=== PATIENT | male | born 1990 | race Caucasian/White ===

== ENCOUNTER 2022-08-08 13:28 | Outpatient (CLI) | payer BC, SELFPAY ==
--- NOTE | 2022-09-05 12:46 | WPDSLEEPSTUD ---
Sleep Study Date of Study: 08/08/22 Ordering Provider: Ken Cooney MD Interpreting Physician: Keli Hong MD Sleep Study Type: CPAP Titration Height: 1.8 m Weight: 102.058 kg Body Mass Index: 31.4 Neck Circumference (inches): 15 [place]: 5 Reason for Sleep Study Patient has been on CPAP 8cmH2O. Recently got a new CPAP machine and his partner noted snoring and gasping while wearing CPAP. CPAP download 07/04-08/02/22 shows excellent compliance, worn 100% of nights for avg overall AHI 6.2 and low air leak. Sleep History Chao Villegas is a 32-year-old man with history of obstructive sleep apnea who presented for a CPAP titration due to snoring, gasping, and AHI on CPAP 8cmH2O. He rarely awakens from sleep short of breath. He rarely awakens at night with heartburn, belching or cough. He frequently snores. He occasionally snores loudly enough that others complain. He frequently has trouble sleeping when he has a cold. He rarely suddenly wakes up gasping for breath during the night. He occasionally has breathing problems at night. He rarely sweats excessively at night. He rarely notices his heart pounding or beating irregularly during the night. He does not fall asleep during the day, involuntarily, or while driving. He never experiences loss of muscle tone with strong emotion. He never has trouble at work because of sleepiness. He never feels paralyzed on waking or falling asleep. He rarely experiences vivid dreams upon waking or falling asleep. He does not feel afraid of going to sleep. He rarely has nightmares. He frequently recalls his dreams. He rarely has thoughts racing through his mind. He does not feel sad or depressed. He does not feel anxiety or worry about things. He never has muscle tension. He occasionally notices parts of his body jerk. He occasionally kicks during the night. He rarely feels crawling or aching feelings in his legs and rarely feels leg pain at night. He does not grind his teeth during sleep and or wake with morning jaw pain. He does not feel bothered by pain during the day. He is never awakened by pain during the night. He does not wake up feeling stiff, sore, and achy in the morning. Normal bedtime is around midnight on the weekdays and same on the weekends, usually falling asleep within 10 minutes. He typically gets about 8-9 hours of sleep per night. His wake up time is around 8-9am on the weekdays and 9-10am on the weekends. He typically wakes up around 1 to 2 times per night and stays in bed, only awake a few minutes. Habits: Never smoked tobacco. He does not use caffeine, alcohol or recreational substances. [facility] Past Medical History Medical History (Updated 09/05/22 @ 12:49 by Keli Hong MD) BMI 31.0-31.9,adult Body mass index [BMI] 26.0-26.9, adult (01/11/19) Dietary counseling and surveillance (01/11/19) Encounter for screening for lipoid disorders Impacted cerumen of both ears Obstructive sleep apnea Sleep apnea in adult Family History Family History Father Hypertension Mother Hypertension Other Cerebrovascular accident Family history of coronary artery disease Social History Social History Smoking status: Never smoker Second hand tobacco smoke exposure: No Alcohol intake: never Substance use: never Substance use type: does not use Lack of Transportation: No Lack of Food: Never True Current Housing: I Have Housing Concerned About Future Housing: No Difficulty Paying Gas/Electric Bills: No Difficulty Paying for Meds: No Currently Unemployed: No Education: Bachelor's Degree Difficulty w/ Childcare or Family Care: No Living arrangements: with family Occupation/Education: occupation 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
[2022-09-05 12:55] VITALS: BMI 31.4
== END 2022-08-09 06:50 | disposition home or self-care (01) ==
LOC: ANHCSM 13:28
PROVIDERS: PCP Family Medicine; Visit Provider Family Medicine
DX: G47.33 Obstructive sleep apnea (adult) (pediatric) (principal)
CPT/HCPCS: 95811